=== PATIENT | female | born 1990 | race African-American/Black ===

== ENCOUNTER 2017-02-06 18:56 | Emergency (ER) | payer SELFPAY ==
[~2017-02-06] VITALS: Ht 167.6 cm; Wt 148.0 kg
[2017-02-06] MEDS ORDERED: IBUPROFEN 600MG TABLET PO ONE (23:00)
[2017-02-06 23:34] VITALS: BP 130/72
== END 2017-02-06 23:47 | disposition home or self-care (01) ==
LOC: ER 20:33
DX: T14.8XXA Other injury of unspecified body region, initial encounter (principal); M60.9 Myositis, unspecified; Z91.013 Allergy to seafood; V43.52XA Car driver injured in collision with other type car in traffic accident, initial encounter; Y93.89 Activity, other specified; Y92.488 Other paved roadways as the place of occurrence of the external cause
CPT/HCPCS: 81025; 99283